=== PATIENT | female | born 2000 | race African-American/Black ===

== ENCOUNTER 2024-02-09 17:18 | Emergency (ER) | payer SELFPAY ==
[~2024-02-09] VITALS: Ht 162.6 cm; Wt 63.0 kg
[2024-02-09 17:20] VITALS: BP 111/65; PULSE 80; RESP 16; TEMP 98.5; O2SAT 100
== END 2024-02-09 19:22 | disposition home or self-care (01) ==
LOC: ER 17:18
DX: O26.891 Other specified pregnancy related conditions, first trimester (principal); Z3A.01 Less than 8 weeks gestation of pregnancy
CPT/HCPCS: 81025; 99282